=== PATIENT | male | born 1965 | race Caucasian/White ===

== ENCOUNTER 2021-07-29 13:23 | Inpatient (IN) | payer OTHER, SELFPAY ==
[2021-07-29] VITALS (15 sets, daily range): BP systolic 94–175; BP diastolic 62–153; PULSE 102–147; RESP 17–20; TEMP 36.5–37.9; O2SAT 92–97; BMI 37.0; BMI 38.5
--- NOTE | 2021-07-29 | COL_PTH ---
PATIENT: ZUHAIR OWEN LOC: MS2 U#:[id number] AGE/SX: 56/M [place] [facility] [place] [place]07/29/[address]: Dr. Dagoberto Colvin MD : 1965 BED: 1 DIS: 08/07/2021 SPEC #: [id number] RECD: 07/31/21 09:27 STATUS: JAZMIN ALESIA #: [id number] KAREN: 07/29/21 00:[address]: Dagoberto Colvin DEPT: SURGICAL PATHOLOGY RECD BY: Coleen Hernandez ENTERED: 07/31/21 13:08 SP TYPE: COLON OTHR DR: Out of [facility] Doctor Tissues: Colon, NOS Procedures: Surgery Specimen Level V HEADER OPERATION: Laparotomy with right ileocecectomy PRE-OP DIAGNOSIS: Acute appendicitis with rupture TISSUE SUBMITTED: Ileocecectomy MICROSCOPIC DIAGNOSIS Cecum and small bowel, right ileocecectomy: Acute appendicitis with rupture, abscess formation and associated reparative and reactive change. Mucosal margins with no pathologic change. Small bowel with fibrinoid serosal plaque and acute inflammation. Cecum with mild acute serositis. Five out of five lymph nodes with no pathologic change. AM:herberth 08/02/2021 MICROSCOPIC DESCRIPTION Slides are reviewed. GROSS DESCRIPTION Received in fixative is one container labeled with the patient's name and designated ileocecectomy. The specimen consists of a 32 cm segment of small bowel with attached 9 cm segment of cecum and approximately 6 cm segment of appendix with an average diameter of 1.5 cm and surrounding indurated, chapman-yellow fibrofatty tissue. The appendix focally appears to have been ruptured in its distal one-third portion. No mucosal mass lesions are identified. Serial sections of attached fibrofatty tissue reveals a number of nodules resembling lymph nodes. Also present free in the container is an irregular mucosal donut measuring 5 x 1.5 x 1 cm. No mucosal lesions are seen in this mucosal donut. / AM: 07/31/21 The small bowel and cecal mucosa is thrown into normal folds. No mucosal mass lesions are identified. Sort Line Worker sections are submitted as follows: 1 - proximal and distal mucosal margins, 2 - small bowel, 3 - cecum, 4 - ileocecal valve, 5-9 - appendix and periappendiceal tissue, 10 - lymph nodes. / AM:herberth 08/01/21 TC:2 CPT: 20346
--- NOTE | 2021-07-29 14:11 | CT_ITS ---
We are attempting to reach an attending provider to discuss findings. An addendum with communication details will be sent when the communication is complete. STUDY: CT ABDOMEN AND PELVIS WITHOUT CONTRAST REASON FOR EXAM: Male, 56 years old. Right lower quadrant pain. RADIATION DOSAGE (If Supplied By Facility): CTDIvol = ( 21.29 ) mGy, DLP = ( 1367.07 ) mGycm TECHNIQUE: Transaxial images were obtained from the dome of the diaphragm to the symphysis pubis without oral contrast, and without intravenous contrast. Sagittal and coronal images were reconstructed. Individualized dose optimization techniques were used for this CT. COMPARISON: None. FINDINGS: The visualized lung bases demonstrate patchy infiltrates in the right middle lobe and right lower lobe. Atelectatic changes in the right lower lobe. Normal heart size. Mild coronary calcifications. Normal liver. Normal gallbladder and extrahepatic biliary system. Normal spleen. Normal pancreas. Normal bilateral adrenal glands. Normal right kidney. Normal left kidney. Normal visualized stomach. Normal small intestine. Thickening of the cecum. Thickened ill-defined appendix with appendicolith with adjacent extensive inflammatory changes and free fluid in the right lower quadrant consistent with a ruptured acute appendicitis. Normal abdominal aorta. Normal inferior vena cava. Normal retroperitoneum. Normal urinary bladder. Mild free fluid in the pelvis. There is a left-sided inguinal hernia containing adipose tissue. Degenerative changes in the spine. Mild retrolisthesis of L2 over L3. CT/Abdomen/Pelvis without Cont IMPRESSION: 1. Findings consistent with ruptured acute appendicitis as described above. 2. Mild right mid and lower lung infiltrates concerning for pneumonia. Electronically Signed: Brando Velásquez MD at 15:15 EDT Tel , Service support ,
--- NOTE | 2021-07-29 14:12 | EX.ED.DYSGE1 ---
HPI History of Present Illness Chief Complaint: Abd Pain Informant: patient Narrative Narrative: 56-year-old male presenting with right lower quadrant abdominal pain. He states this started on . He has had nausea and vomiting. He has had mild diarrhea. He has had subjective fever. He has had decreased appetite. Prior similar symptoms: Yes Recent Illness/Hospitalization: No PFSH PFSH Medical History (Updated 07/29/21 @ 15:[address] Franci Power MD) Hyperlipidemia Hypertension Home Medications aspirin 81 mg PO DAILY 07/29/21 [History Last Taken Unknown] diclofenac sodium 50 mg PO BID 07/29/21 [History Last Taken Unknown] ezetimibe 10 mg PO QHS 07/29/21 [History Last Taken Unknown] hydrochlorothiazide 12.5 mg PO BID 07/29/21 [History Last Taken Unknown] lisinopril 5 mg PO DAILY 07/29/21 [History Last Taken Unknown] multivitamin 1 tab PO DAILY 07/29/21 [History Last Taken Unknown] potassium chloride 20 meq PO DAILY 07/29/21 [History Last Taken Unknown] potassium chloride 40 meq PO DINNER 07/29/21 [History Last Taken Unknown] Allergy/AdvReac Type Severity Reaction Status Date / Time ibuprofen Allergy NEEDS Verified 07/29/21 13:27 FOLLOW-UP Surgical History (Updated 07/29/21 @ 14:04 by Clementina Tamayo) History of tonsillectomy Social History Smoking Status: Never smoker ROS ROS ED Constitutional Constitutional ED: Reports fever(s) and subjective Eyes Eyes: Denies change in vision ENT ENT ED: Denies rhinorrhea or sore throat Cardiovascular Cardiovascular: Denies chest pain or palpitations Respiratory/Chest Respiratory/Chest: Denies cough or dyspnea Gastrointestinal Gastrointestinal: Reports abdominal pain, diarrhea, nausea and vomiting Genitourinary Genitourinary ED: Denies dysuria Musculoskeletal Musculoskeletal: Denies myalgias Integumentary Denies rash Neurologic Neurologic: Denies headache(s) Psychiatric Psychiatric: Denies suicidal thoughts EXAM Physical Exam Const Vital Signs: 07/29/21 13:24 07/29/21 14:06 Temperature 97.7 F L Temperature Source Temporal Pulse Rate 147 H 141 H Respiratory Rate 19 H 17 Blood Pressure 175/153 H 125/92 H Blood Pressure Mean 160 103 Pulse Ox 95 95 Oxygen Delivery Method Room Air Room Air Positive well nourished and well developed General Appearance ED: well developed HEENT Reports normocephalic and head/scalp atraumatic Eyes PERRL and EOMs intact bilaterally Neck supple General: Negative for tenderness Chest Wall inspection of chest normal Resp normal respiratory effort and clear to auscultation bilaterally Cardio regular rate and regular rhythm GI non-distended Palpation: soft, tender RLQ and guarding; Negative for rebound tenderness present no CVA tenderness Extremity normal to inspection Neuro oriented x3 Sensorium / Orientation: alert Psych mental status grossly normal MDM MDM MDM Narrative Medical decision making narrative: Patient was given IV fluids, morphine, Zofran. CBC shows white count 10.6. Chemistries unremarkable other than sodium 133. Covid is negative. CT abdomen pelvis shows findings consistent with ruptured acute appendicitis. Mild right mid and lower lung infiltrates concerning for pneumonia. Patient was given Zosyn IV. [facility] need [facility]. Discussed with Dr. Colvin who will evaluate the patient in the ED. Lab Data Attestation: I reviewed the patient's lab results. Labs: Laboratory Results - last 24 hr 07/29/21 07/29/21 14:15 14:15 WBC 10.6 RBC 5.69 Hgb 15.8 Hct 46.4 MCV 81.5 MCH 27.8 MCHC 34.1 RDW Std Deviation 37.2 RDW Coeff of Talat 12.5 Plt Count 351 MPV 9.3 Immature Gran % (Auto) 0.300 Neut % (Auto) 89.4 H Lymph % (Auto) 2.9 L [place]yer % (Auto) 7.0 Eos % (Auto) 0.1 Baso % (Auto) 0.3 Absolute Neuts (auto) 9.5 H Absolute Lymphs (auto) 0.31 L Nucleated RBC % 0 Sodium 133 L Potassium 4.7 Chloride 100 Carbon Dioxide 25.0 Anion Gap 8 BUN 16 Creatinine 1.16 Estim Creat Clear Calc 79.90 Est GFR (MDRD) Af Amer 84 Est GFR (MDRD) Non-Af 70 BUN/Creatinine Ratio 13.8 Glucose 167 H Calcium 9.6 Radiography Diagnostic Testing: Clinical Impression(s) from Imaging Studies Abdomen/Pelvis CT 07/29/21 14:11 IMPRESSION: 1. Findings consistent with ruptured acute appendicitis as described above. 2. Mild right mid and lower lung infiltrates concerning for pneumonia. Electronically Signed: Brando Velásquez MD at 15:15 EDT Tel , Service support , ADDENDUM: 07/29/21 1538 IMPRESSION: 1. Findings consistent with ruptured acute appendicitis as described above. 2. Mild right mid and lower lung infiltrates concerning for pneumonia. N.B. : The above Results were Read Back by Brando Velásquez MD to Dr. Tono MD, and understanding confirmed on 07/29/2021 15:31:04 (ET). Electronically Signed: Brando Velásquez MD at 15:15 EDT Tel , Service support , Discharge Plan Dx/Rx/DC Orders Clinical Impression: Acute appendicitis with rupture Disposition Disposition: Acute Care [facility]
[2021-07-29] MEDS: 0.9% Normal Saline 1,000 ML 1000 ML IV (14:20)
[2021-07-29 14:26] LABS: Absolute Lymphocyte Count 0.31 X10^3/uL (0.83-4.51); Absolute Neutrophil Count 9.5 X10^3/uL (2.0-7.7); Basophil# 0.03 X10^3/uL; Basophil% 0.3 % (0-1); Eosinophil# 0.01 X10^3/uL; Eosinophils% 0.1 % (0-5); Hematocrit 46.4 % (40-54); Hemoglobin 15.8 g/dL (13.0-16.5); Lymphocyte # 0.31 X10^3/ul (0.83-4.51); Lymphocyte % 2.9 % (19-41); Mean Corp Hgb Conc 34.1 g/dL (32-36); Mean Corpuscular Hgb 27.8 pg (27.0-32.0); Mean Corpuscular Volume 81.5 fL (80-94); Mean Platelet Vol. 9.3 fl (6.2-12.0); Monocyte# 0.74 X10^3/uL; NRBC Flagged by Analyzer 0 % (0-5); Neutrophil # 9.52 X10^3/uL (2.7-7.7); Neutrophil % 89.4 % (47-70); POSITIVE DIFFERENTIAL YES; Platelet Count 351 K/mm3 (150-450); RBC Distribution Width CV 12.5 % (11.6-14.6); RBC Distribution Width SD 37.2 fl (35.1-43.9); Red Blood Count 5.69 M/mm3 (4.6-6.2); White Blood Count 10.6 K/mm3 (4.4-11.0)
[2021-07-29 14:27] LABS: Differential Indicated SCAN CRITERIA MET
[2021-07-29] MEDS: Morphine 4 MG/ML Syringe IV (14:29)
[2021-07-29] MEDS: Ondansetron 4 MG/2 ML Vial IV (14:29)
[2021-07-29 15:02] LABS: Anion Gap 8 (5-15); BUN 16 mg/dL (7-18); BUN/Creat Ratio 13.8 RATIO (10-20); Calcium,Total 9.6 mg/dL (8.5-10.1); Chloride 100 mmol/L (98-107); Creatinine, Serum 1.16 mg/dL (0.70-1.30); EST Glomerular Filtration Rate 70 mL/min (>60); Est Glom Filt Rate - Afr Amer 84 mL/min (>60); Glucose 167 mg/dL (74-106); Potassium 4.7 mmol/L (3.5-5.1); Sodium Level 133 mmol/L (136-145)
--- NOTE | 2021-07-29 15:26 | NURSING ---
LEFT MESSAGE WITH ESTEFANÍA HANSON THAT PT HAS A RUPTURED APPENDIX AND NEEDS CONTINUED CARE.
[2021-07-29] MEDS: 0.9% Normal Saline 1,000 ML 999 ML IV (15:59)
--- NOTE | 2021-07-29 16:28 | EKG12_ITS ---
Test Reason : PRE-OP Blood Pressure : / mmHG Vent. Rate : 131 BPM Atrial Rate : 131 BPM P-R Int : 164 ms QRS Dur : 092 ms QT Int : 272 ms P-R-T Axes : 039 055 026 degrees QTc Int : 401 ms Sinus tachycardia Otherwise normal ECG Confirmed by RIC BAH, JERRI ([id number]), research editor YEISON ZHU ([id number]) on 08/01/2021 8:47:31 AM Referred By: ALEXANDER Confirmed By:JERRI LARIOS MD
[2021-07-29] MEDS: Lactated Ringers 1,000 ML 100 ML IV ×2 (16:30→18:00)
--- NOTE | 2021-07-29 16:32 | HP.PCM.SX_ITS ---
HPI - General HPI Narrative ZUHAIR OWEN, is a 56 M who presents with abdominal that started 4 days ago. Patient then developed more severe abdominal pain and started having nausea and vomiting. Patient also reported low-grade fever at home. [facility] Medical History (Updated 07/29/21 @ 15:[address] Franci Power MD) Hyperlipidemia Hypertension Home Medications aspirin 81 mg PO DAILY 07/29/21 [History Last Taken Unknown] diclofenac sodium 50 mg PO BID 07/29/21 [History Last Taken Unknown] ezetimibe 10 mg PO QHS 07/29/21 [History Last Taken Unknown] hydrochlorothiazide 12.5 mg PO BID 07/29/21 [History Last Taken Unknown] lisinopril 5 mg PO DAILY 07/29/21 [History Last Taken Unknown] multivitamin 1 tab PO DAILY 07/29/21 [History Last Taken Unknown] potassium chloride 20 meq PO DAILY 07/29/21 [History Last Taken Unknown] potassium chloride 40 meq PO DINNER 07/29/21 [History Last Taken Unknown] Allergy/AdvReac Type Severity Reaction Status Date / Time ibuprofen Allergy NEEDS Verified 07/29/21 13:27 FOLLOW-UP Surgical History (Updated 07/29/21 @ 14:04 by Clementina Tamayo) History of tonsillectomy Social History Smoking Status: Never smoker ROS Constitutional Constitutional: Reports fever(s) Eyes Eyes: Denies blurry vision ENT HEENT: Denies abnormal hearing Cardiovascular Cardiovascular: Denies chest pain Respiratory/Chest Respiratory/Chest: Denies cough or dyspnea Gastrointestinal Gastrointestinal: Reports abdominal pain, nausea and vomiting; Denies constipation or diarrhea Genitourinary Genitourinary: Denies change in urinary stream Musculoskeletal Musculoskeletal: Denies abnormal gait Integumentary Integumentary: Denies jaundice Neurologic Neurologic: Denies abnormal gait Vital Signs Vital Signs Vital Signs: 07/29/21 13:24 07/29/21 14:06 Temperature 97.7 F L Temperature Source Temporal Pulse Rate 147 H 141 H Respiratory Rate 19 H 17 Blood Pressure 175/153 H 125/92 H Blood Pressure Mean 160 103 Pulse Ox 95 95 Oxygen Delivery Method Room Air Room Air Weight Weight: 273 lb Body Mass Index (BMI) 37.0 Physical Exam Const oriented x3 and no apparent distress Resp normal respiratory effort Cardio Rate: tachycardic GI soft to palpation Palpation: tender RLQ Results Lab / Micro Data Result Diagrams: 07/29/21 14:15 10/16/21 14:15 Labs: Laboratory Results - last 24 hr 07/29/21 14:15: WBC 10.6, RBC 5.69, Hgb 15.8, Hct 46.4, MCV 81.5, MCH 27.8, MCHC 34.1, RDW Std Deviation 37.2, RDW Coeff of Talat 12.5, Plt Count 351, MPV 9.3, Immature Gran % (Auto) 0.300, Neut % (Auto) 89.4 H, Lymph % (Auto) 2.9 L, [place] % (Auto) 7.0, Eos % (Auto) 0.1, Baso % (Auto) 0.3, Absolute Neuts (auto) 9.5 H, Absolute Lymphs (auto) 0.31 L, Nucleated RBC % 0 07/29/21 14:15: Sodium 133 L, Potassium 4.7, Chloride 100, Carbon Dioxide 25.0, Anion Gap 8, BUN 16, Creatinine 1.16, Estim Creat Clear Calc 79.90, Est GFR (MDRD) Af Amer 84, Est GFR (MDRD) Non-Af 70, BUN/Creatinine Ratio 13.8, Glucose 167 H, Calcium 9.6 Micro: Microbiology 07/29/21 15:15 Nasal Secretion SARS-CoV-2 Antigen (Rapid) - Final Radiology Impression Abdomen/Pelvis CT 07/29/21 14:11 IMPRESSION: 1. Findings consistent with ruptured acute appendicitis as described above. 2. Mild right mid and lower lung infiltrates concerning for pneumonia. Electronically Signed: Brando Velásquez MD at 15:15 EDT Tel , Service support , ADDENDUM: 07/29/21 1538 IMPRESSION: 1. Findings consistent with ruptured acute appendicitis as described above. 2. Mild right mid and lower lung infiltrates concerning for pneumonia. N.B. : The above Results were Read Back by Brando Velásquez MD to Dr. Tono MD, and understanding confirmed on 07/29/2021 15:31:04 (ET). Electronically Signed: Brando Velásquez MD at 15:15 EDT Tel , Service support , Assessment & Plan Assessment/Plan (1) Acute appendicitis with rupture: PLAN: The patient has been having pain for the last 4 days. He is also having nausea and vomiting as well as fever. Patient is having a severe amount of right lower quadrant pain with guarding. CT scan shows perforated appendicitis with an appendicolith and fluid around the right colon. There are pockets of free air. Given the amount of inflammation I do not believe this will be able to be taken care of laparoscopically. I believe the patient would require open washout of the abdomen with ileocecectomy. I discussed open laparotomy and ileocecectomy with the patient. I discussed the risks including but not limited to bleeding, infection, injury to surrounding organs such as the small bowel or colon or ureter or bladder. Patient understands the risks and the need for resection. Patient was given antibiotics in the ER. Twelve-lead EKG and Covid test will be obtained. Dagoberto Colvin MD Pager: [facility] [address] [place] [address], [address] [place] [address] Office:
[2021-07-29 17:22] LABS: White Blood Cells 0 SEEN /hpf (0-5)
[2021-07-29 17:25] LABS: Color, Urine Yellow (Yellow); Glucose, Dipstick Normal (Normal); Ketone-Dipstick 15 mg/dl (Negative); Leukocyte Esterase-Dipstick Negative /ul (Negative); Nitrite-Dipstick Negative (Negative); Occult Blood-Urine 150 /ul (Negative); Protein-Dipstick 30 mg/dl (Negative); Urine Bilirubin Dipstick Negative (Negative); Urine Clarity Clear (Clear); Urine Urobilinogen 1 mg/dl (Normal)
[2021-07-29 17:30] LABS: Bacteria 1+ /hpf (None Seen); Mucous, Urine 1+ /hpf (<or=2+); Red Blood Cells-Urine 0-5 SEEN /hpf (0-5); Squamous Epithelial Cells - UA 0-5 SEEN /hpf (0-5)
--- NOTE | 2021-07-29 19:44 | PCM.OPRPT ---
Problems Associated Problem List Diagnoses (1) Acute appendicitis with rupture: Report of Operation Date of Procedure: 07/29/21 Pre-Operative Diagnosis: Perforated appendicitis Post-Operative Diagnosis: Perforated appendicitis with peritonitis Surgery/Procedure Performed:: Exploratory laparotomy with ileocecectomy Specimen's removed: Terminal ileum and cecum Drains: BARRY to bulb suction Description of Procedure: Patient was brought back to the operating room and general anesthesia was used. Odonnell catheter was placed into the bladder. The abdomen was prepped and draped in the usual sterile fashion. A midline incision was made from just above the umbilicus down to the suprapubic area and deepened to the fascia using electrocautery. The fascia was elevated and sharply incised. Fingers were placed into the abdomen and the fascial and peritoneal incision were elongated superiorly and inferiorly. A wound protector was placed. Copious purulent material was suctioned from the abdomen. The patient had peritonitis as well. The cecum appeared to be very inflamed and adherent to the lateral wall. It was finger fractured away from the lateral wall and some sharp dissection was performed as well. The proximal ascending colon was then freed from its lateral attachments. The terminal ileum appeared very inflamed and thickened as well. This was traced back until normal small bowel was encountered. Next just distal to the inflamed colon a RIVKA stapler was used to divide the ascending colon. In the same fashion the ileum was divided as well and using an impact LigaSure the mesentery to the terminal ileum and cecum was taken. There is good hemostasis. Specimen was sent for pathology. Next the abdomen was copiously irrigated with several liters of fluid and suctioned dry. A small ashlyn was made in each staple line of the small bowel and colon and then a RIVKA stapler was used to make a [id number] functional end-to-end anastomosis between the small bowel and the colon. The stapler was removed and a TX 60 was used to close the enterotomy. A crotch suture of 3-0 silk was placed. The mesentery was too inflamed to reapproximate. The anastomosis was placed into the abdomen and the abdomen was once again irrigated and suctioned dry. A 15 [place] round drain was placed through the left lower quadrant and into the abdomen and placed into the pelvis. It was sutured to the skin using 3-0 nylon suture and placed to bulb suction. The fascia was then closed using a running #1 PDS suture from the top and bottom meeting in the middle. Subcutaneous tissue was irrigated and suctioned dry and sparse jenn were placed in the skin incision to allow for drainage. Dressing was applied. Patient was awoken and taken to PACU in stable condition and Odonnell catheter was left in place. Admit VTE Documentation VTE Mechan Device Prophylaxis: SCD's
[2021-07-29] MEDS: 0.9% Normal Saline 1,000 ML 125 ML IV (21:52)
--- NOTE | 2021-07-29 22:31 | PCS.PANDOC ---
PANDEMIC DOCUMENTATION INITIATED: Date: 05/29/2021 Time: 190
[2021-07-29] MEDS: Acetaminophen 325 MG Tablet 650 MG PO (22:32)
[2021-07-30] VITALS (16 sets, daily range): BP systolic 102–144; BP diastolic 60–92; PULSE 101–123; RESP 18–20; TEMP 36.1–37.9; O2SAT 88–94
[2021-07-30] MEDS: 0.9% Normal Saline 1,000 ML 999 ML IV (00:31)
[2021-07-30] MEDS: 0.9% Normal Saline 1,000 ML 125 ML IV ×4 (01:34→23:49)
[2021-07-30] MEDS: HYDROmorphone 1 MG/ML Syringe IV ×10 (01:42→23:49)
[2021-07-30] MEDS: Acetaminophen 325 MG Tablet 650 MG PO ×2 (02:33→23:49)
[2021-07-30] MEDS: 0.9% Saline Lock 10 ML Syringe IV ×3 (04:14→19:03)
[2021-07-30 05:32] LABS: Absolute Lymphocyte Count 1.16 X10^3/uL (0.83-4.51); Absolute Neutrophil Count 12.5 X10^3/uL (2.0-7.7); Basophil# 0.03 X10^3/uL; Basophil% 0.2 % (0-1); Hematocrit 41.9 % (40-54); Hemoglobin 13.9 g/dL (13.0-16.5); Lymphocyte # 1.16 X10^3/ul (0.83-4.51); Lymphocyte % 7.7 % (19-41); Mean Corp Hgb Conc 33.2 g/dL (32-36); Mean Corpuscular Hgb 27.6 pg (27.0-32.0); Mean Corpuscular Volume 83.3 fL (80-94); Mean Platelet Vol. 9.3 fl (6.2-12.0); Monocyte# 1.18 X10^3/uL; Monocyte% 7.9 % (0-10); NRBC Flagged by Analyzer 0 % (0-5); Neutrophil # 12.52 X10^3/uL (2.7-7.7); Neutrophil % 83.7 % (47-70); Platelet Count 352 K/mm3 (150-450); RBC Distribution Width SD 39.3 fl (35.1-43.9); Red Blood Count 5.03 M/mm3 (4.6-6.2)
[2021-07-30 06:02] LABS: Anion Gap 7 (5-15); BUN 13 mg/dL (7-18); BUN/Creat Ratio 11.5 RATIO (10-20); Calcium,Total 7.5 mg/dL (8.5-10.1); Chloride 105 mmol/L (98-107); Creatinine, Serum 1.13 mg/dL (0.70-1.30); EST Glomerular Filtration Rate 72 mL/min (>60); Est Glom Filt Rate - Afr Amer 87 mL/min (>60); Estimated Creatinine Clearance 82.03 ml/min; Glucose 136 mg/dL (74-106); Potassium 3.6 mmol/L (3.5-5.1); Sodium Level 138 mmol/L (136-145)
--- NOTE | 2021-07-30 06:19 | NURSING ---
assisted with help of another RN to assist pt getting up as its postop day #1. pt sat at edge of bed and stated i feel like i am going to pass out pt assisted back to bed to a lying position and pt states that dizziness is residing. pt requesting pain meds, and Dilaudid given at this time. denies further needs. vitals obtained.
--- NOTE | 2021-07-30 07:32 | PCM.PN.SRG ---
Subjective Subjective Patient reports no nausea vomiting overnight although he did have a low-grade fever. Objective Data Objective Data Vital Signs: Vital Signs Temp Pulse Resp BP Pulse Ox 98.8 F 105 H 18 107/78 93 07/30/21 06:08 07/30/21 06:08 07/30/21 06:08 07/30/21 06:08 07/30/21 06:08 Oxygen Flow Rate (L/min) 4 Oxygen Delivery Method Nasal Cannula Weight: 284 lb 2.813 oz Body Mass Index (BMI) 38.5 Intake & Output: Intake and Output for Last 24 Hours 07/28/21 07/29/21 07/30/21 23:59 23:59 23:59 Intake Total 3553.33 / 3553.33 1425.42 / 1425.42 Output Total 775 / 775 520 / 520 Balance 2778.33 / 2778.33 905.42 / 905.42 Lab / Micro Data Result Diagrams: 07/30/21 05:00 07/30/21 05:00 Labs: Laboratory Results - last 24 hr 07/29/21 14:15: WBC 10.6, RBC 5.69, Hgb 15.8, Hct 46.4, MCV 81.5, MCH 27.8, MCHC 34.1, RDW Std Deviation 37.2, RDW Coeff of Talat 12.5, Plt Count 351, MPV 9.3, Immature Gran % (Auto) 0.300, Neut % (Auto) 89.4 H, Lymph % (Auto) 2.9 L, [place] % (Auto) 7.0, Eos % (Auto) 0.1, Baso % (Auto) 0.3, Absolute Neuts (auto) 9.5 H, Absolute Lymphs (auto) 0.31 L, Nucleated RBC % 0 07/29/21 14:15: Sodium 133 L, Potassium 4.7, Chloride 100, Carbon Dioxide 25.0, Anion Gap 8, BUN 16, Creatinine 1.16, Estim Creat Clear Calc 79.90, Est GFR (MDRD) Af Amer 84, Est GFR (MDRD) Non-Af 70, BUN/Creatinine Ratio 13.8, Glucose 167 H, Calcium 9.6 07/29/21 17:15: Urine Color Yellow, Urine Clarity Clear, Urine pH 5.0, Ur Specific [place] 1.020, Urine Protein 30 H, Urine Glucose (UA) Normal, Urine Ketones 15 H, Urine Occult Blood 150 H, Urine Nitrite Negative, Urine Bilirubin Negative, Urine Urobilinogen 1 H, Ur Leukocyte Esterase Negative, Urine RBC 0-5 SEEN, Urine WBC 0 SEEN, Ur Squamous Epith Cells 0-5 SEEN, Urine Bacteria 1+, Urine Mucus 1+ 07/30/21 05:00: WBC 15.0 H, RBC 5.03, Hgb 13.9, Hct 41.9, MCV 83.3, MCH 27.6, MCHC 33.2, RDW Std Deviation 39.3, RDW Coeff of Talat 13.0, Plt Count 352, MPV 9.3, Immature Gran % (Auto) 0.500, Neut % (Auto) 83.7 H, Lymph % (Auto) 7.7 L, [place] % (Auto) 7.9, Eos % (Auto) 0.0, Baso % (Auto) 0.2, Absolute Neuts (auto) 12.5 H, Absolute Lymphs (auto) 1.16, Nucleated RBC % 0 07/30/21 05:00: Sodium 138, Potassium 3.6, Chloride 105, Carbon Dioxide 26.0, Anion Gap 7, BUN 13, Creatinine 1.13, Estim Creat Clear Calc 82.03, Est GFR (MDRD) Af Amer 87, Est GFR (MDRD) Non-Af 72, BUN/Creatinine Ratio 11.5, Glucose 136 H, Calcium 7.5 L Micro: Microbiology 07/29/21 15:15 Nasal Secretion SARS-CoV-2 Antigen (Rapid) - Final Radiography Diagnostic Testing: Radiology Impression Abdomen/Pelvis CT 07/29/21 14:11 IMPRESSION: 1. Findings consistent with ruptured acute appendicitis as described above. 2. Mild right mid and lower lung infiltrates concerning for pneumonia. Electronically Signed: Brando Velásquez MD at 15:15 EDT Tel , Service support , ADDENDUM: 07/29/21 1093 IMPRESSION: 1. Findings consistent with ruptured acute appendicitis as described above. 2. Mild right mid and lower lung infiltrates concerning for pneumonia. N.B. : The above Results were Read Back by Brando Velásquez MD to Dr. Tono MD, and understanding confirmed on 07/29/2021 15:31:04 (ET). Electronically Signed: Brando Velásquez MD at 15:15 EDT Tel , Service support , Physical Exam Const oriented x3 and no apparent distress Resp normal respiratory effort Cardio Rate: tachycardic GI soft to palpation Palpation: tender Assessment & Plan Assessment/Plan (1) Acute appendicitis with rupture: PLAN: The patient underwent ileocecectomy yesterday for perforated appendicitis. Patient has a drain in place and will continue antibiotics. Urine output is adequate and Odonnell will be removed. BARRY drain is seropurulent. Continue n.p.o. with IV fluids and I will start Lovenox. PPI, incentive spirometer. Dagoberto Colvin MD Pager: [facility] [address] [place] [address], [address] [place] [address] Office:
[2021-07-30] MEDS: Aspirin 81 MG TAB.CHEW PO (09:05)
[2021-07-30] MEDS: Enoxaparin 40 MG/0.4 ML Syringe SC (09:05)
[2021-07-30] MEDS: Pantoprazole Sodium 40 MG Tablet PO (09:05)
[2021-07-30] MEDS: hydroCHLOROthiazide 12.5mg 12.5 MG PO (21:39)
[2021-07-31] VITALS (11 sets, daily range): BP systolic 112–148; BP diastolic 65–97; PULSE 95–119; RESP 18–20; TEMP 36.8–37.8; O2SAT 91–94
[2021-07-31] MEDS: HYDROmorphone 1 MG/ML Syringe IV ×7 (02:15→23:44)
[2021-07-31 06:27] LABS: Absolute Lymphocyte Count 0.95 X10^3/uL (0.83-4.51); Absolute Neutrophil Count 15.8 X10^3/uL (2.0-7.7); Basophil# 0.03 X10^3/uL; Basophil% 0.2 % (0-1); Eosinophil# 0.04 X10^3/uL; Eosinophils% 0.2 % (0-5); Hematocrit 41.4 % (40-54); Hemoglobin 13.4 g/dL (13.0-16.5); Lymphocyte # 0.95 X10^3/ul (0.83-4.51); Lymphocyte % 5.2 % (19-41); Mean Corp Hgb Conc 32.4 g/dL (32-36); Mean Corpuscular Hgb 27.5 pg (27.0-32.0); Mean Platelet Vol. 9.2 fl (6.2-12.0); Monocyte# 1.21 X10^3/uL; Monocyte% 6.6 % (0-10); NRBC Flagged by Analyzer 0 % (0-5); Neutrophil # 15.82 X10^3/uL (2.7-7.7); Platelet Count 337 K/mm3 (150-450); RBC Distribution Width CV 13.3 % (11.6-14.6); RBC Distribution Width SD 41.9 fl (35.1-43.9); Red Blood Count 4.87 M/mm3 (4.6-6.2); White Blood Count 18.2 K/mm3 (4.4-11.0)
[2021-07-31 06:55] LABS: Anion Gap 8 (5-15); BUN 12 mg/dL (7-18); BUN/Creat Ratio 11.1 RATIO (10-20); Calcium,Total 8.2 mg/dL (8.5-10.1); Chloride 100 mmol/L (98-107); Creatinine, Serum 1.08 mg/dL (0.70-1.30); EST Glomerular Filtration Rate 76 mL/min (>60); Est Glom Filt Rate - Afr Amer 92 mL/min (>60); Estimated Creatinine Clearance 85.82 ml/min; Glucose 136 mg/dL (74-106); Potassium 3.9 mmol/L (3.5-5.1); Sodium Level 136 mmol/L (136-145)
[2021-07-31] MEDS: 0.9% Normal Saline 1,000 ML 125 ML IV ×3 (07:55→23:49)
[2021-07-31] MEDS: Aspirin 81 MG TAB.CHEW PO (08:02)
[2021-07-31] MEDS: Pantoprazole Sodium 40 MG Tablet PO (08:03)
[2021-07-31] MEDS: Enoxaparin 40 MG/0.4 ML Syringe SC (08:03)
[2021-07-31] MEDS: Lisinopril 5 MG Tablet PO (08:03)
[2021-07-31] MEDS: hydroCHLOROthiazide 12.5mg 12.5 MG PO ×2 (08:03→21:01)
--- NOTE | 2021-07-31 08:29 | CT_ITS ---
STUDY: CT ABDOMEN AND PELVIS WITH CONTRAST REASON FOR EXAM: Male, 56 years old. fever, leukocytosis, s/p ileocecectomy for perf ap RADIATION DOSAGE (If Supplied By Facility): CTDIvol = ( 22.77 ) mGy, DLP = ( 1997.72 ) mGycm TECHNIQUE: Transaxial images were obtained from the dome of the diaphragm to the symphysis pubis with oral contrast. Oral and amp; IV Gastrografin and amp; 100mL Isovue-370 was administered. Sagittal and coronal images were reconstructed. Individualized dose optimization techniques were used for this CT. COMPARISON: 07/29/2021 FINDINGS: Bibasilar atelectasis. The visualized portions of the heart are within normal limits. Small amount of pneumoperitoneum and free fluid consistent with recent abdominal surgery. Surgical drain in the right lower quadrant without loculated fluid collection to suggest postoperative seroma, hematoma, or abscess. Normal liver. Normal gallbladder and extrahepatic biliary system. Normal spleen. Normal pancreas. Normal bilateral adrenal glands. Normal right kidney. Normal left kidney. Mild gastric distention. Multiple loops of moderately dilated jejunum with a transition point in the right upper quadrant on image 87 consistent with a mild small bowel obstruction. No pneumatosis to suggest ischemia. No evidence of perforation. Normal colon. There are surgical clips in the region of the appendix consistent with a prior appendectomy. Normal abdominal aorta. Normal inferior vena cava. Normal retroperitoneum. Air-fluid level in the urinary bladder likely from recent instrumentation. Normal abdominal wall. Normal osseous structures. CT/Abdomen/Pelvis WITH Contrast IMPRESSION: 1. Recent appendectomy with a small amount of pneumoperitoneum and free fluid with a right lower quadrant surgical drain without postoperative fluid collection. 2. Some bibasilar atelectasis. 3. Mild small bowel obstruction with a transition point in the right upper quadrant. Electronically Signed: Tristen Mensah MD at 12:30 EDT Tel , Service support ,
--- NOTE | 2021-07-31 08:29 | CT_ITS ---
STUDY: CTA CHEST REASON FOR EXAM: Male, 56 years old. tachycardia, increased o2 demand RADIATION DOSAGE (If Supplied By Facility): CTDIvol = ( 22.77 ) mGy, DLP = ( 1997.72 ) mGycm TECHNIQUE: The examination was performed with the intravenous administration of Oral and amp; IV Gastrografin and amp; 100mL Isovue-370. Post-processing of the angiographic images was performed, with multiplanar reformation and 3D reconstruction. Individualized dose optimization techniques were used for this CT. COMPARISON: None. FINDINGS: Enlargement left lobe of thyroid gland correlation with thyroid ultrasound is recommended to exclude nodule. Normal enhancement of the main pulmonary artery and right and left pulmonary arteries. Normal enhancement of the bilateral peripheral pulmonary arteries. There is no demonstrated pulmonary embolism. Normal thoracic aorta and visualized great vessels. There is no demonstrated aortic dissection. Normal heart and pericardium. Normal mediastinum. Normal hilar regions. Normal visualized trachea and bronchi. The lungs are well expanded. Some bibasilar atelectasis. Normal pleura. Normal chest wall structures. Normal osseous structures. Small amount of pneumoperitoneum consistent with recent surgery. CT/CTA Chest W/WO Contrast IMPRESSION: 1. No CT evidence of pulmonary embolism. 2. Some bibasilar atelectasis. 3. Small amount of pneumoperitoneum consistent with recent abdominal surgery. 4. Enlargement of the left lobe of thyroid gland and correlation with thyroid ultrasound is recommended to exclude thyroid nodule. Electronically Signed: Tristen Mensah MD at 12:38 EDT Tel , Service support ,
--- NOTE | 2021-07-31 08:45 | PCM.PN.SRG ---
Subjective Subjective Patient had no nausea or vomiting but does require a lot of pain medication. No flatus. Objective Data Objective Data Vital Signs: Vital Signs Temp Pulse Resp BP Pulse Ox 98.6 F 115 H 18 137/71 H 92 07/31/21 08:00 07/31/21 08:00 07/31/21 08:00 07/31/21 08:00 07/31/21 08:00 Oxygen Flow Rate (L/min) 5 Oxygen Delivery Method Nasal Cannula Weight: 284 lb 2.813 oz Body Mass Index (BMI) 38.5 Intake & Output: Intake and Output for Last 24 Hours 07/29/21 07/30/21 07/31/21 23:59 23:59 23:59 Intake Total 3553.33 / 3553.33 5000.41 / 5000.41 1065 / 1065 Output Total 775 / 775 1325 / 1325 250 / 250 Balance 2778.33 / 2778.33 3675.41 / 3675.41 815 / 815 Lab / Micro Data Result Diagrams: 07/31/21 06:02 07/31/21 06:02 Labs: Laboratory Results - last 24 hr 07/31/21 06:02: WBC 18.2 H, RBC 4.87, Hgb 13.4, Hct 41.4, MCV 85.0, MCH 27.5, MCHC 32.4, RDW Std Deviation 41.9, RDW Coeff of Talat 13.3, Plt Count 337, MPV 9.2, Immature Gran % (Auto) 0.800, Neut % (Auto) 87.0 H, Lymph % (Auto) 5.2 L, [place] % (Auto) 6.6, Eos % (Auto) 0.2, Baso % (Auto) 0.2, Absolute Neuts (auto) 15.8 H, Absolute Lymphs (auto) 0.95, Nucleated RBC % 0 07/31/21 06:02: Sodium 136, Potassium 3.9, Chloride 100, Carbon Dioxide 28.0, Anion Gap 8, BUN 12, Creatinine 1.08, Estim Creat Clear Calc 85.82, Est GFR (MDRD) Af Amer 92, Est GFR (MDRD) Non-Af 76, BUN/Creatinine Ratio 11.1, Glucose 136 H, Calcium 8.2 L Micro: Microbiology 10/16/21 15:15 Nasal Secretion SARS-CoV-2 Antigen (Rapid) - Final Physical Exam Const no apparent distress Cardio Rate: tachycardic GI soft to palpation Palpation: tender other (Diffuse) Assessment & Plan Assessment/Plan (1) Acute appendicitis with rupture: PLAN: The patient is having increasing oxygen requirements as well as tachycardia. Patient's white count has gone up and he is not passing any flatus yet. He is diffusely tender in his abdomen. Given the fact that his white count has gone up and he is increasing his oxygen requirements I am concerned for PE versus developing pneumonia and I will order a CTA of the chest. I will also order a CT with oral contrast of the abdomen to see if there is any leakage from the anastomosis or abscess. Dagoberto Colvin MD Pager: [facility] [address] [place] [address], [address] [place] [address] Office:
--- NOTE | 2021-07-31 11:35 | CASEMGMT ---
RN PERLA Face to Face with patient for initial transition planning/care coordination assessment. RN CM introduced self and role at [facility]. Patient lying in bed, alert and oriented. Patient willing to participate in assessment and is able to answer all questions appropriately. Care providers, pharmacy, and demographics verified. Patient wishes to discharge home, denies need for home health at this time. Patient states he has no further needs or concerns at this time. CM to follow for discharge planning needs that may arise. PCP:Esther Diaz [place] Specialists: none Preferred Pharmacy: [place], [facility] retail at discharge. [place] Living Will/HPOA: none LNOK: ex Living Arrangements: Patient lives in a single story home with 4 steps to enter. Patient states he was independent at home. Transportation: self/family DME/HHC: Patient denies DME or previous HHC Disposition Plan: Patient to discharge home with family support and follow-up plans in place. Jessi VALERA, RN, CM
[2021-07-31] MEDS: Ketorolac 15 MG/ML Vial IV ×2 (13:22→21:01)
--- NOTE | 2021-07-31 13:52 | CASEMGMT ---
GEORGIANA DUNCAN received call from Henri STONER at [facility]. Updated on clinical information. Henri STONER direct number is [phone].
[2021-07-31] MEDS: 0.9% Saline Lock 10 ML Syringe IV ×2 (16:07→23:44)
[2021-08-01] VITALS (8 sets, daily range): BP systolic 123–145; BP diastolic 71–94; PULSE 78–99; RESP 18–20; TEMP 36.4–37.1; O2SAT 93–97
[2021-08-01] MEDS: Calcium Carbonate 500 MG Tablet PO (01:59)
[2021-08-01] MEDS: HYDROmorphone 1 MG/ML Syringe IV (03:00)
[2021-08-01] MEDS: 0.9% Saline Lock 10 ML Syringe IV ×2 (03:00→22:31)
[2021-08-01] MEDS: Ondansetron 4 MG/2 ML Vial IV (05:59)
--- NOTE | 2021-08-01 06:28 | NURSING ---
pt had large emesis, 500 ml of green bile vomit. zofran given, effective
[2021-08-01 06:43] LABS: Absolute Lymphocyte Count 0.66 X10^3/uL (0.83-4.51); Absolute Neutrophil Count 17.2 X10^3/uL (2.0-7.7); Basophil# 0.03 X10^3/uL; Basophil% 0.2 % (0-1); Eosinophil# 0.03 X10^3/uL; Eosinophils% 0.2 % (0-5); Hematocrit 39.1 % (40-54); Lymphocyte # 0.66 X10^3/ul (0.83-4.51); Lymphocyte % 3.5 % (19-41); Mean Corp Hgb Conc 33.2 g/dL (32-36); Mean Corpuscular Hgb 27.4 pg (27.0-32.0); Mean Corpuscular Volume 82.3 fL (80-94); Monocyte# 0.96 X10^3/uL; NRBC Flagged by Analyzer 0 % (0-5); Neutrophil # 17.18 X10^3/uL (2.7-7.7); Neutrophil % 89.9 % (47-70); Platelet Count 406 K/mm3 (150-450); RBC Distribution Width SD 39.4 fl (35.1-43.9); Red Blood Count 4.75 M/mm3 (4.6-6.2); White Blood Count 19.1 K/mm3 (4.4-11.0)
[2021-08-01 07:11] LABS: Anion Gap 8 (5-15); BUN 17 mg/dL (7-18); BUN/Creat Ratio 21.8 RATIO (10-20); Calcium,Total 8.3 mg/dL (8.5-10.1); Chloride 101 mmol/L (98-107); Creatinine, Serum 0.78 mg/dL (0.70-1.30); EST Glomerular Filtration Rate 110 mL/min (>60); Est Glom Filt Rate - Afr Amer 133 mL/min (>60); Estimated Creatinine Clearance 118.83 ml/min; Glucose 155 mg/dL (74-106); Potassium 3.3 mmol/L (3.5-5.1); Sodium Level 136 mmol/L (136-145)
[2021-08-01] MEDS: 0.9% Normal Saline 1,000 ML 125 ML IV ×3 (07:52→22:29)
[2021-08-01] MEDS: Enoxaparin 40 MG/0.4 ML Syringe SC (07:55)
--- NOTE | 2021-08-01 08:00 | RAD_ITS ---
STUDY: X-RAY - ABDOMEN/PELVIS REASON FOR EXAM: Male, 56 years old. Concern for SBO -- confirm NG placement TECHNIQUE: Single AP view of the abdomen / pelvis. COMPARISON: None. FINDINGS: Nasogastric tube has been placed. The tip is in the body of the stomach with the proximal portion coiled in the fundal portion of the stomach. There are dilated loops of the small intestine with a non-distended colon consistent with a small bowel obstruction. Small amount of gas and fecal material is seen in the colon. Postoperative catheter is seen in the lower abdomen and pelvis. The visualized liver, spleen and kidneys are grossly normal in size and morphology. Normal soft tissue structures. Normal visualized osseous structures. RAD/Abdomen Single View (Portable) IMPRESSION: The tip of the nasogastric tube is in the body of the stomach. The more proximal portion of the nasogastric tube is coiled in the stomach. Small bowel dilatation with a small amount of gas and fecal material in the colon. Electronically Signed: Corbin Medeiros MD at 8:28 EDT , Service support ,
--- NOTE | 2021-08-01 08:10 | PCM.PN.SRG ---
Subjective Subjective The patient had some vomiting this morning and still has no flatus. Planing of a lot of abdominal pain. Objective Data Objective Data Vital Signs: Vital Signs Temp Pulse Resp BP Pulse Ox 98.7 F 94 18 123/71 H 94 08/01/21 03:00 08/01/21 03:00 08/01/21 03:00 08/01/21 03:00 08/01/21 03:00 Oxygen Flow Rate (L/min) 3 Oxygen Delivery Method Nasal Cannula Weight: 284 lb 2.813 oz Body Mass Index (BMI) 38.5 Intake & Output: Intake and Output for Last 24 Hours 07/30/21 07/31/21 08/01/21 23:59 23:59 23:59 Intake Total 5000.41 / 5000.41 3935.83 / 3935.83 1050 / 1050 Output Total 1325 / 1325 1495 / 1495 2580 / 2580 Balance 3675.41 / 3675.41 2440.83 / 2440.83 -1530 / -1530 Lab / Micro Data Result Diagrams: 08/01/21 06:32 08/01/21 06:32 Labs: Laboratory Results - last 24 hr 08/01/21 06:32: WBC 19.1 H, RBC 4.75, Hgb 13.0, Hct 39.1 L, MCV 82.3, MCH 27.4, MCHC 33.2, RDW Std Deviation 39.4, RDW Coeff of Talat 13.0, Plt Count 406, MPV 9.0, Immature Gran % (Auto) 1.200 H, Neut % (Auto) 89.9 H, Lymph % (Auto) 3.5 L, [place] % (Auto) 5.0, Eos % (Auto) 0.2, Baso % (Auto) 0.2, Absolute Neuts (auto) 17.2 H, Absolute Lymphs (auto) 0.66 L, Nucleated RBC % 0 08/01/21 06:32: Sodium 136, Potassium 3.3 L, Chloride 101, Carbon Dioxide 27.0, Anion Gap 8, BUN 17, Creatinine 0.78, Estim Creat Clear Calc 118.83, Est GFR (MDRD) Af Amer 133, Est GFR (MDRD) Non-Af 110, BUN/Creatinine Ratio 21.8 H, Glucose 155 H, Calcium 8.3 L Micro: Microbiology 07/29/21 15:15 Nasal Secretion SARS-CoV-2 Antigen (Rapid) - Final Radiography Diagnostic Testing: Radiology Impression Abdomen/Pelvis CT 07/31/21 08:29 IMPRESSION: 1. Recent appendectomy with a small amount of pneumoperitoneum and free fluid with a right lower quadrant surgical drain without postoperative fluid collection. 2. Some bibasilar atelectasis. 3. Mild small bowel obstruction with a transition point in the right upper quadrant. Electronically Signed: Tristen Mnesah MD at 12:30 EDT Tel , Service support , Chest CTA 07/31/21 08:29 IMPRESSION: 1. No CT evidence of pulmonary embolism. 2. Some bibasilar atelectasis. 3. Small amount of pneumoperitoneum consistent with recent abdominal surgery. 4. Enlargement of the left lobe of thyroid gland and correlation with thyroid ultrasound is recommended to exclude thyroid nodule. Electronically Signed: Tristen Mensah MD at 12:38 EDT Tel , Service support , Physical Exam Const oriented x3 GI soft to palpation Inspection: abdominal distention Palpation: tender Assessment & Plan Assessment/Plan (1) Acute appendicitis with rupture: PLAN: Patient had increasing pain yesterday requiring a lot of Dilaudid. I started Toradol. The patient's oxygenation requirements did decrease and he is down to 2 L of oxygen. Patient did have some emesis this morning and I will place an NG tube for postoperative ileus. On CTA yesterday there was no PE and on CT of the abdomen pelvis it appears the patient has an ileus with distended loops of small bowel and stomach but there is gas and stool in the colon. I tried to continue to encourage the patient to ambulate but he says he is in too much pain and is not getting out of bed much. Continue antibiotics. Dagoberto Colvin MD Pager: [facility] [address] [place] [address], [address] [place] [address] Office:
[2021-08-01] MEDS: Potassium Chloride 10mEq/100mL 10 MEQ/100 ML IV.SOLN. 100 MEQ IV BOLUS (09:32)
[2021-08-01] MEDS: Ketorolac 15 MG/ML Vial IV ×3 (09:38→22:31)
[2021-08-01] MEDS: Potassium Chloride 10mEq/100mL 10 MEQ/100 ML IV.SOLN. 50 MEQ IV BOLUS ×3 (14:10→17:10)
--- NOTE | 2021-08-01 19:48 | NURSING ---
permission given by patient to give update to father don. gave update regarding status/progress. Father thankful for care. Per patient, ok to give updates to father if he calls.
[2021-08-02 03:53] VITALS: BP 149/97; PULSE 91; RESP 19; TEMP 37.2; O2SAT 97
[2021-08-02] MEDS: Ketorolac 15 MG/ML Vial IV ×3 (04:58→22:12)
[2021-08-02] MEDS: 0.9% Normal Saline 1,000 ML 125 ML IV ×2 (05:00→18:14)
[2021-08-02 05:45] LABS: Absolute Lymphocyte Count 0.84 X10^3/uL (0.83-4.51); Basophil# 0.04 X10^3/uL; Basophil% 0.3 % (0-1); Eosinophil# 0.31 X10^3/uL; Eosinophils% 2.1 % (0-5); Hematocrit 36.3 % (40-54); Hemoglobin 12.3 g/dL (13.0-16.5); Lymphocyte # 0.84 X10^3/ul (0.83-4.51); Lymphocyte % 5.7 % (19-41); Mean Corp Hgb Conc 33.9 g/dL (32-36); Mean Corpuscular Hgb 27.8 pg (27.0-32.0); Mean Corpuscular Volume 81.9 fL (80-94); Mean Platelet Vol. 8.8 fl (6.2-12.0); Monocyte# 1.42 X10^3/uL; Monocyte% 9.6 % (0-10); NRBC Flagged by Analyzer 0 % (0-5); Neutrophil # 11.99 X10^3/uL (2.7-7.7); Neutrophil % 81.2 % (47-70); Platelet Count 415 K/mm3 (150-450); RBC Distribution Width CV 13.2 % (11.6-14.6); RBC Distribution Width SD 40.2 fl (35.1-43.9); Red Blood Count 4.43 M/mm3 (4.6-6.2); White Blood Count 14.8 K/mm3 (4.4-11.0)
[2021-08-02 06:08] LABS: Anion Gap 9 (5-15); BUN 18 mg/dL (7-18); BUN/Creat Ratio 24.6 RATIO (10-20); Chloride 104 mmol/L (98-107); Creatinine, Serum 0.73 mg/dL (0.70-1.30); EST Glomerular Filtration Rate 118 mL/min (>60); Est Glom Filt Rate - Afr Amer 143 mL/min (>60); Estimated Creatinine Clearance 126.97 ml/min; Glucose 120 mg/dL (74-106); Potassium 3.1 mmol/L (3.5-5.1); Sodium Level 140 mmol/L (136-145)
--- NOTE | 2021-08-02 08:27 | RAD_ITS ---
STUDY: X-RAY - ABDOMEN/PELVIS REASON FOR EXAM: Male, 56 years old. Ileus TECHNIQUE: Single AP view of the abdomen / pelvis. COMPARISON: Comparison is made with prior study 08/01/2021. FINDINGS: And orogastric tube is seen with the tip in the body of the stomach. Since prior study, there has been a progression of the small bowel dilatation. Fecal material is seen throughout the colon. Material There is no demonstrated free abdominal air. The visualized liver, spleen and kidneys are grossly normal in size and morphology. Normal soft tissue structures. Normal visualized osseous structures. RAD/Abdomen Single View IMPRESSION: Progressive small bowel dilatation with gas and fecal material seen in the colon. Follow-up is recommended. Electronically Signed: Corbin Medeiros MD at 13:01 EDT , Service support ,
[2021-08-02 09:00] VITALS: O2SAT 93
--- NOTE | 2021-08-02 09:08 | NURSING ---
Assisted patient to BSC. patient would like to sit there for a while. callight in reach.
--- NOTE | 2021-08-02 09:34 | WOUNDNOTE ---
assisted patient to the chair from the [facility]. no BM at this time. nursing stated pt had one earlier this am. pt steady with walker. patient had a large amount of serosanguineous drainage from the BARRY drain site left lower abd. patient states the drain was pulled this am. removed old dressing. applied a new dry dressing. secured with Medipore tape. gown changed. pt up in chair. call light in reach. Pt denies further needs at this time.
[2021-08-02] MEDS: Potassium Chloride 10mEq/100mL 10 MEQ/100 ML IV.SOLN. 100 MEQ IV BOLUS ×4 (09:46→14:32)
[2021-08-02] MEDS: Enoxaparin 40 MG/0.4 ML Syringe SC (09:52)
[2021-08-02 10:00] VITALS: BP 164/96; PULSE 96; RESP 18; TEMP 37.1; O2SAT 94
[2021-08-02] MEDS: hydroCHLOROthiazide 12.5mg 12.5 MG PO (11:36)
[2021-08-02] MEDS: Lisinopril 5 MG Tablet PO (11:36)
[2021-08-02] MEDS: Aspirin 81 MG TAB.CHEW PO (11:36)
[2021-08-02 18:25] VITALS: BP 154/94; PULSE 88; RESP 16; TEMP 36.6; O2SAT 96
[2021-08-02 22:07] VITALS: BP 167/98; PULSE 80; RESP 18; TEMP 36.6; O2SAT 96
[2021-08-02] MEDS: 0.9% Saline Lock 10 ML Syringe IV (22:12)
[2021-08-03] VITALS (7 sets, daily range): BP systolic 155–165; BP diastolic 83–105; PULSE 74–85; RESP 16–22; TEMP 36.7–37.2; O2SAT 92–96
[2021-08-03] MEDS: 0.9% Normal Saline 1,000 ML 125 ML IV (02:01)
[2021-08-03] MEDS: Ketorolac 15 MG/ML Vial IV ×3 (05:49→21:33)
[2021-08-03] MEDS: 0.9% Saline Lock 10 ML Syringe IV ×2 (05:49→21:32)
--- NOTE | 2021-08-03 05:55 | RAD_ITS ---
STUDY: X-RAY - ABDOMEN/PELVIS REASON FOR EXAM: Male, 56 years old. Ileus TECHNIQUE: Portable, AP radiographs of the abdomen and pelvis COMPARISON: 08/02/2021 RAD/Abdomen Single View (Portable) IMPRESSION: No significant change in diffuse gaseous bowel distention. Enteric tube again projects over the gastric fundus. Electronically Signed: Balaji Burns MD at 5:11 EDT Tel , Service support ,
[2021-08-03 07:19] LABS: Absolute Lymphocyte Count 0.97 X10^3/uL (0.83-4.51); Absolute Neutrophil Count 11.7 X10^3/uL (2.0-7.7); Basophil# 0.05 X10^3/uL; Basophil% 0.3 % (0-1); Eosinophil# 0.35 X10^3/uL; Eosinophils% 2.4 % (0-5); Hematocrit 35.6 % (40-54); Hemoglobin 12.1 g/dL (13.0-16.5); Lymphocyte # 0.97 X10^3/ul (0.83-4.51); Lymphocyte % 6.6 % (19-41); Mean Corpuscular Hgb 27.7 pg (27.0-32.0); Mean Corpuscular Volume 81.5 fL (80-94); Mean Platelet Vol. 8.8 fl (6.2-12.0); Monocyte# 1.35 X10^3/uL; Monocyte% 9.1 % (0-10); NRBC Flagged by Analyzer 0 % (0-5); Neutrophil # 11.69 X10^3/uL (2.7-7.7); Neutrophil % 79.2 % (47-70); Platelet Count 419 K/mm3 (150-450); RBC Distribution Width CV 13.4 % (11.6-14.6); RBC Distribution Width SD 39.9 fl (35.1-43.9); Red Blood Count 4.37 M/mm3 (4.6-6.2); White Blood Count 14.8 K/mm3 (4.4-11.0)
[2021-08-03 07:44] LABS: Anion Gap 9 (5-15); BUN 16 mg/dL (7-18); BUN/Creat Ratio 25.3 RATIO (10-20); Calcium,Total 8.1 mg/dL (8.5-10.1); Chloride 104 mmol/L (98-107); Creatinine, Serum 0.63 mg/dL (0.70-1.30); EST Glomerular Filtration Rate 140 mL/min (>60); Est Glom Filt Rate - Afr Amer 170 mL/min (>60); Estimated Creatinine Clearance 147.13 ml/min; Glucose 114 mg/dL (74-106); Potassium 2.9 mmol/L (3.5-5.1); Sodium Level 139 mmol/L (136-145)
--- NOTE | 2021-08-03 08:31 | PN.SURG_ITS ---
Subjective Subjective Patient is passing flatus and had several bowel movements yesterday evening. His abdomen is nontender. Objective Data Objective Data Vital Signs: Vital Signs Temp Pulse Resp BP Pulse Ox 98.7 F 78 18 155/94 H 92 08/03/21 04:20 08/03/21 04:20 08/03/21 04:20 08/03/21 04:20 08/03/21 07:00 Oxygen Flow Rate (L/min) 7 Oxygen Delivery Method Nasal Cannula Weight: 284 lb 2.813 oz Body Mass Index (BMI) 38.5 Intake & Output: Intake and Output for Last 24 Hours 08/01/21 08/02/21 08/03/21 23:59 23:59 23:59 Intake Total 2590.00 / 2590.00 2674.58 / 2674.58 1202.92 / 1202.92 Output Total 5075 / 5075 1675 / 1675 1375 / 1375 Balance -2485.00 / -2485.00 999.58 / 999.58 -172.08 / -172.08 Lab / Micro Data Result Diagrams: 08/03/21 06:50 08/03/21 06:50 Labs: Laboratory Results - last 24 hr 08/03/21 06:50: WBC 14.8 H, RBC 4.37 L, Hgb 12.1 L, Hct 35.6 L, MCV 81.5, MCH 27.7, MCHC 34.0, RDW Std Deviation 39.9, RDW Coeff of Talat 13.4, Plt Count 419, MPV 8.8, Immature Gran % (Auto) 2.400 H, Neut % (Auto) 79.2 H, Lymph % (Auto) 6.6 L, [place] % (Auto) 9.1, Eos % (Auto) 2.4, Baso % (Auto) 0.3, Absolute Neuts (auto) 11.7 H, Absolute Lymphs (auto) 0.97, Nucleated RBC % 0 08/03/21 06:50: Sodium 139, Potassium 2.9 L, Chloride 104, Carbon Dioxide 26.0, Anion Gap 9, BUN 16, Creatinine 0.63 L, Estim Creat Clear Calc 147.13, Est GFR (MDRD) Af Amer 170, Est GFR (MDRD) Non-Af 140, BUN/Creatinine Ratio 25.3 H, Glucose 114 H, Calcium 8.1 L Micro: Microbiology 07/29/21 15:15 Nasal Secretion SARS-CoV-2 Antigen (Rapid) - Final Radiography Diagnostic Testing: Radiology Impression KUB X-Ray 08/02/21 08:27 IMPRESSION: Progressive small bowel dilatation with gas and fecal material seen in the colon. Follow-up is recommended. Electronically Signed: Corbin Medeiros MD at 13:01 EDT , Service support , KUB X-Ray 08/03/21 05:55 IMPRESSION: No significant change in diffuse gaseous bowel distention. Enteric tube again projects over the gastric fundus. Electronically Signed: Balaji Burns MD at 5:11 EDT Tel , Service support , Physical Exam Const no apparent distress Resp normal respiratory effort GI soft to palpation and non-tender Inspection: Negative for abdominal distention Assessment & Plan Assessment/Plan (1) Acute appendicitis with rupture: PLAN: Patient has ongoing postoperative ileus although it appears to be resolving. The patient has several bowel movements and is passing flatus but x- rays still show a lot of copiously dilated bowel. His NG did put out 700 cc overnight. I will try clamping trial today as he is having no nausea or vomiting and no abdominal pain and having bowel function. Patient is hypokalemic and this will be replaced Continue antibiotics, PPI, Lovenox. Dagboerto Colvin MD Pager: [facility] [address] [place] [address], [address] [place] [address] Office:
[2021-08-03] MEDS: Potassium Chloride 40 MEQ in 0.9% Normal Saline 1,000 ML 120 MEQ IV (09:14)
[2021-08-03] MEDS: Potassium Chloride 10mEq/100mL 10 MEQ/100 ML IV.SOLN. 100 MEQ IV BOLUS ×6 (09:17→18:46)
[2021-08-03] MEDS: hydrALAZINE 20 MG/ML Vial 10 MG IV ×2 (10:52→21:32)
[2021-08-03] MEDS: Enoxaparin 40 MG/0.4 ML Syringe SC (13:58)
[2021-08-03 16:24] LABS: Potassium 3.2 mmol/L (3.5-5.1)
[2021-08-04] VITALS (7 sets, daily range): BP systolic 146–162; BP diastolic 80–101; PULSE 70–82; RESP 18–22; TEMP 36.4–37.3; O2SAT 96–98
[2021-08-04] MEDS: Potassium Chloride 40 MEQ in 0.9% Normal Saline 1,000 ML 120 MEQ IV ×3 (00:07→23:30)
[2021-08-04] MEDS: Ketorolac 15 MG/ML Vial IV ×3 (05:40→20:44)
[2021-08-04] MEDS: 0.9% Saline Lock 10 ML Syringe IV ×3 (05:41→14:45)
--- NOTE | 2021-08-04 05:55 | RAD_ITS ---
STUDY: X-RAY - ABDOMEN/PELVIS REASON FOR EXAM: Male, 56 years old. Ileus TECHNIQUE: AP abdomen radiograph COMPARISON: 2 hours earlier RAD/Abdomen Single View IMPRESSION: No significant change in diffuse gaseous bowel distention. Enteric tube is not demonstrated. Electronically Signed: Balaji Burns MD at 6:32 EDT Tel , Service support ,
[2021-08-04 06:07] LABS: Absolute Lymphocyte Count 1.31 X10^3/uL (0.83-4.51); Absolute Neutrophil Count 11.9 X10^3/uL (2.0-7.7); Basophil# 0.07 X10^3/uL; Basophil% 0.4 % (0-1); Eosinophil# 0.36 X10^3/uL; Eosinophils% 2.3 % (0-5); Hemoglobin 12.6 g/dL (13.0-16.5); Lymphocyte # 1.31 X10^3/ul (0.83-4.51); Lymphocyte % 8.4 % (19-41); Mean Corp Hgb Conc 34.1 g/dL (32-36); Mean Corpuscular Hgb 27.7 pg (27.0-32.0); Mean Corpuscular Volume 81.3 fL (80-94); Mean Platelet Vol. 8.8 fl (6.2-12.0); Monocyte# 1.23 X10^3/uL; Monocyte% 7.9 % (0-10); NRBC Flagged by Analyzer 0 % (0-5); Neutrophil # 11.85 X10^3/uL (2.7-7.7); Neutrophil % 76.1 % (47-70); Platelet Count 442 K/mm3 (150-450); RBC Distribution Width CV 13.4 % (11.6-14.6); Red Blood Count 4.55 M/mm3 (4.6-6.2); White Blood Count 15.6 K/mm3 (4.4-11.0)
[2021-08-04 06:31] LABS: Anion Gap 8 (5-15); BUN 16 mg/dL (7-18); BUN/Creat Ratio 24.1 RATIO (10-20); Calcium,Total 8.1 mg/dL (8.5-10.1); Chloride 104 mmol/L (98-107); Creatinine, Serum 0.66 mg/dL (0.70-1.30); EST Glomerular Filtration Rate 133 mL/min (>60); Est Glom Filt Rate - Afr Amer 161 mL/min (>60); Estimated Creatinine Clearance 140.44 ml/min; Glucose 107 mg/dL (74-106); Potassium 3.3 mmol/L (3.5-5.1); Sodium Level 137 mmol/L (136-145)
--- NOTE | 2021-08-04 07:43 | CT_ITS ---
HISTORY: persistent ileus s/p ileocecectomy for perf appy. TECHNIQUE: Helically acquired images were obtained of the abdomen and pelvis with IV contrast. A radiation dose optimization technique was used for this scan. IV Contrast dosage and agent: 100 mL Isovue-370. Oral contrast: None. # of images incl. paperwork: [phone]. COMPARISON: 07/31/2021. FINDINGS: LOWER CHEST: Mild dependent bibasilar atelectasis with mild bilateral pleural effusions. PERITONEUM: Removal of drainage catheter. Punctate free air, decreased from prior. Mild ascites and mesenteric edema. 3 x 5.7 cm fluid collection in the appendectomy bed. BOWEL: Multiple fluid-filled dilated small bowel loops again seen with transition zone in the right upper quadrant. Decompressed colon with colonic diverticulosis noted. LIVER: No enhancing lesion. GALLBLADDER/BILIARY TREE: Gallbladder present. SPLEEN/PANCREAS: Homogeneous. KIDNEYS/ADRENAL GLANDS: Unremarkable. VESSELS: No abdominal aortic aneurysm. Mild atherosclerosis. PELVIC ORGANS: Trace air in the urinary bladder again noted. ABDOMINAL WALL: Anterior skin jenn with mild edema again seen. Tiny fat-containing umbilical hernia. BONES: Intact. CT/Abdomen/Pelvis WITH Contrast IMPRESSION: Persistent small bowel obstruction with transition point in the upper abdomen. Decreased free air. Appendectomy with small postoperative fluid collection or loculated ascites in the right lower quadrant status post drainage catheter removal. Mild pleural effusions. Individualized dose optimization techniques were used for this CT. at 0840 Reported and signed by: Mary Jane Mccarthy MD Electronically Signed: Mary Jane Mccarthy MD at 8:39 EDT Tel , Service support ,
--- NOTE | 2021-08-04 08:04 | PCM.PN.SRG ---
Subjective Subjective Patient had another bowel movement yesterday and he is not reporting any nausea or vomiting. He does have some abdominal pain. Objective Data Objective Data Vital Signs: Vital Signs Temp Pulse Resp BP Pulse Ox 97.9 F 75 22 H 146/92 H 98 08/04/21 03:22 08/04/21 03:22 08/04/21 03:22 08/04/21 03:22 08/04/21 06:48 Oxygen Flow Rate (L/min) 7 Oxygen Delivery Method Room Air Weight: 284 lb 2.813 oz Body Mass Index (BMI) 38.5 Intake & Output: Intake and Output for Last 24 Hours 08/02/21 08/03/21 08/04/21 23:59 23:59 23:59 Intake Total 2674.58 / 2674.58 4158.34 / 4158.34 190.25 / 190.25 Output Total 1675 / 1675 2390 / 2390 375 / 375 Balance 999.58 / 999.58 1768.34 / 1768.34 -184.75 / -184.75 Lab / Micro Data Result Diagrams: 08/04/21 05:50 08/04/21 05:50 Labs: Laboratory Results - last 24 hr 08/03/21 15:35: Potassium 3.2 L 08/04/21 05:50: WBC 15.6 H, RBC 4.55 L, Hgb 12.6 L, Hct 37.0 L, MCV 81.3, MCH 27.7, MCHC 34.1, RDW Std Deviation 40.0, RDW Coeff of [place]at 13.4, Plt Count 442, MPV 8.8, Immature Gran % (Auto) 4.900 H, Neut % (Auto) 76.1 H, Lymph % (Auto) 8.4 L, [place] % (Auto) 7.9, Eos % (Auto) 2.3, Baso % (Auto) 0.4, Absolute Neuts (auto) 11.9 H, Absolute Lymphs (auto) 1.31, Nucleated RBC % 0 08/04/21 05:50: Sodium 137, Potassium 3.3 L, Chloride 104, Carbon Dioxide 25.0, Anion Gap 8, BUN 16, Creatinine 0.66 L, Estim Creat Clear Calc 140.44, Est GFR (MDRD) Af Amer 161, Est GFR (MDRD) Non-Af 133, BUN/Creatinine Ratio 24.1 H, Glucose 107 H, Calcium 8.1 L Micro: Microbiology 07/29/21 15:15 Nasal Secretion SARS-CoV-2 Antigen (Rapid) - Final Radiography Diagnostic Testing: Radiology Impression KUB X-Ray 08/04/21 05:55 IMPRESSION: No significant change in diffuse gaseous bowel distention. Enteric tube is not demonstrated. Electronically Signed: Balaji Burns MD at 6:32 EDT Tel , Service support , Physical Exam Const no apparent distress Cardio regular rate GI soft to palpation Inspection: abdominal distention Assessment & Plan Assessment/Plan (1) Acute appendicitis with rupture: PLAN: Patient had a KUB at the morning which shows persistently dilated small bowel. He did have another bowel movement. He had no nausea or vomiting after NG was removed. His white count is persistently elevated despite antibiotics. Patient's respiratory status is improved and he is on room air. I plan to order a CT with IV contrast to see if there is a persistent abscess causing his white count and ileus. Dagoberto Colvin MD Pager: [facility] [address] [place] [address], [address] [place] [address] Office:
[2021-08-04 08:12] LABS: Magnesium 2.2 mg/dL (1.6-2.6)
[2021-08-04] MEDS: Potassium Chloride 10mEq/100mL 10 MEQ/100 ML IV.SOLN. 100 MEQ IV BOLUS ×4 (08:21→13:27)
--- NOTE | 2021-08-04 10:41 | PCM.PN.BLA ---
Progress Note I discussed the patient CT findings with him. And shows a possible partial bowel obstruction. Patient did have a bowel movement yesterday evening and reports no nausea or vomiting after 24 hours of ice chips and NG being out. I offered the patient operative exploration tomorrow morning but the patient would like to avoid surgery at all cost. If the patient starts having bowel function I will start him on clears later today or tomorrow. Dr. Harding will be rounding for me over the weekend. If there is no improvement over the weekend I will plan for surgical exploration on Saturday. Dagoberto Colvin MD Pager: [facility] [address] [place] [address], [address] [place] [address] Office:
[2021-08-04] MEDS: Aspirin 81 MG TAB.CHEW PO (10:54)
[2021-08-04] MEDS: Enoxaparin 40 MG/0.4 ML Syringe SC (10:54)
[2021-08-04] MEDS: Lisinopril 5 MG Tablet PO (10:54)
[2021-08-04] MEDS: hydroCHLOROthiazide 12.5mg 12.5 MG PO ×2 (10:54→20:44)
[2021-08-05 03:09] VITALS: BP 163/103; PULSE 72; RESP 18; TEMP 37.1; O2SAT 96
[2021-08-05] MEDS: hydrALAZINE 20 MG/ML Vial 10 MG IV (03:09)
[2021-08-05] MEDS: Ketorolac 15 MG/ML Vial IV (06:01)
[2021-08-05 07:58] VITALS: BP 132/87; PULSE 72; RESP 18; TEMP 36.7; O2SAT 98
[2021-08-05] MEDS: Potassium Chloride 40 MEQ in 0.9% Normal Saline 1,000 ML 120 MEQ IV ×2 (08:00→21:15)
[2021-08-05] MEDS: Enoxaparin 40 MG/0.4 ML Syringe SC (08:01)
[2021-08-05] MEDS: hydroCHLOROthiazide 12.5mg 12.5 MG PO ×2 (08:02→21:15)
[2021-08-05] MEDS: Lisinopril 5 MG Tablet PO (08:02)
[2021-08-05] MEDS: Aspirin 81 MG TAB.CHEW PO (08:02)
[2021-08-05 08:05] VITALS: O2SAT 96
--- NOTE | 2021-08-05 08:24 | PCM.PN.SRG ---
Subjective Subjective Patient states abdominal discomfort is improved. Patient states he has had a bowel movement and is passing flatus. Patient states that he is ambulating Objective Data Objective Data Abdomen is remarkably soft. Dressings are dry. No rebound guarding or peritoneal signs Vital Signs: Vital Signs Temp Pulse Resp BP Pulse Ox 98.1 F 72 18 132/87 H 96 08/05/21 07:58 08/05/21 07:58 08/05/21 07:58 08/05/21 07:58 08/05/21 08:05 Oxygen Flow Rate (L/min) 7 Oxygen Delivery Method Room Air Weight: 271 lb 2.697 oz Body Mass Index (BMI) 38.5 Intake & Output: Intake and Output for Last 24 Hours 08/03/21 08/04/21 08/05/21 23:59 23:59 23:59 Intake Total 4158.34 / 4158.34 2868.58 / 2918.58 1120 / 1120 Output Total 2390 / 2390 675 / 675 700 / 700 Balance 1768.34 / 1768.34 2193.58 / 2243.58 420 / 420 Lab / Micro Data Result Diagrams: 08/04/21 05:50 08/04/21 05:50 Micro: Microbiology 07/29/21 15:15 Nasal Secretion SARS-CoV-2 Antigen (Rapid) - Final Radiography Diagnostic Testing: Radiology Impression Abdomen/Pelvis CT 08/04/21 07:43 IMPRESSION: Persistent small bowel obstruction with transition point in the upper abdomen. Decreased free air. Appendectomy with small postoperative fluid collection or loculated ascites in the right lower quadrant status post drainage catheter removal. Mild pleural effusions. Individualized dose optimization techniques were used for this CT. at 0840 Reported and signed by: Mary Jane Mccarthy MD Electronically Signed: Mary Jane Mccarthy MD at 8:39 EDT Tel , Service support , Assessment & Plan Assessment/Plan (1) Acute appendicitis with rupture: PLAN: I think the patient is improving. His abdomen is much softer. We will continue current plan of care. No urgent surgical needs today.
[2021-08-05 09:48] LABS: Hematocrit 39.4 % (40-54); Mean Corpuscular Hgb 27.1 pg (27.0-32.0); Mean Corpuscular Volume 82.1 fL (80-94); Mean Platelet Vol. 8.9 fl (6.2-12.0); POSITIVE COUNT YES; POSITIVE MORPHOLOGY YES; Platelet Count 462 K/mm3 (150-450); RBC Distribution Width CV 13.3 % (11.6-14.6); White Blood Count 14.5 K/mm3 (4.4-11.0)
[2021-08-05 10:13] LABS: Differential Indicated MANUAL DIFF
[2021-08-05 10:29] LABS: Anion Gap 11 (5-15); BUN 13 mg/dL (7-18); BUN/Creat Ratio 20.7 RATIO (10-20); Chloride 101 mmol/L (98-107); Creatinine, Serum 0.63 mg/dL (0.70-1.30); EST Glomerular Filtration Rate 141 mL/min (>60); Est Glom Filt Rate - Afr Amer 171 mL/min (>60); Estimated Creatinine Clearance 147.13 ml/min; Glucose 97 mg/dL (74-106); Potassium 3.4 mmol/L (3.5-5.1); Sodium Level 136 mmol/L (136-145)
[2021-08-05 10:31] LABS: Eosinophil 4 % (0-5); Lymphocyte 10 % (19-41); Monocyte 5 % (0-10); Myelocyte 2 % (0-0); Neutrophil-Band 1 % (0-5); Neutrophil-Segmented 78 % (47-70); Total Cells Counted 100 (MANUAL DIFF)
[2021-08-05 10:32] LABS: Absolute Neutrophil Count 11.5 X10^3/uL (2.0-7.7); Platelet Estimate ADEQUATE (ADEQ); Red Cell Morphology NORM C+C NORMAL (NORM C&C)
--- NOTE | 2021-08-05 10:32 | NURSING ---
Walked in [facility] first time this morning with EDWIGE Irizarry..
[2021-08-05 10:33] LABS: Absolute Lymphocyte Count 1.45 X10^3/uL (0.83-4.51)
--- NOTE | 2021-08-05 12:41 | NURSING ---
Pt recently got up and ambulated again for the 2nd time today.
[2021-08-05 14:59] VITALS: BP 161/92; PULSE 71; RESP 18; TEMP 37.2; O2SAT 97
--- NOTE | 2021-08-05 17:17 | NURSING ---
This nurse aware of Vital Signs that were taken today at 1459 by Lamar Meza LPN
--- NOTE | 2021-08-05 18:44 | NURSING ---
Pt has walked a total of 5 times today.
[2021-08-05] MEDS: Acetaminophen 325 MG Tablet 650 MG PO (21:21)
[2021-08-05 21:30] VITALS: BP 143/89; PULSE 68; RESP 18; TEMP 37.1; O2SAT 97
[2021-08-06] MEDS: Calcium Carbonate 500 MG Tablet PO ×4 (03:23→22:34)
[2021-08-06] MEDS: Acetaminophen 325 MG Tablet 650 MG PO ×4 (03:24→22:35)
[2021-08-06 03:27] VITALS: BP 121/97; PULSE 71; RESP 18; TEMP 36.1; O2SAT 96
--- NOTE | 2021-08-06 05:15 | NURSING ---
walking in [facility] gait steady
[2021-08-06] MEDS: Potassium Chloride 40 MEQ in 0.9% Normal Saline 1,000 ML 120 MEQ IV ×3 (05:34→23:00)
[2021-08-06 08:20] VITALS: O2SAT 95
[2021-08-06] MEDS: Aspirin 81 MG TAB.CHEW PO (08:38)
[2021-08-06 08:48] VITALS: BP 146/90; PULSE 104; RESP 18; TEMP 36.9; O2SAT 98
[2021-08-06 08:59] VITALS: BP 133/72; PULSE 88; RESP 16; TEMP 36.2; O2SAT 95
--- NOTE | 2021-08-06 09:45 | PCM.PN.SRG ---
Subjective Subjective Patient states he is having bowel movements and passing flatus. He is hungry. Objective Data Objective Data Abdomen is actually softer today than it was yesterday. No rebound guarding or peritoneal signs are identified Vital Signs: Vital Signs Temp Pulse Resp BP Pulse Ox 97.1 F L 88 16 133/72 H 95 08/06/21 08:59 08/06/21 08:59 08/06/21 08:59 08/06/21 08:59 08/06/21 08:59 Oxygen Flow Rate (L/min) 7 Oxygen Delivery Method Room Air Weight: 271 lb 2.697 oz Body Mass Index (BMI) 38.5 Intake & Output: Intake and Output for Last 24 Hours 08/04/21 08/05/21 08/06/21 23:59 23:59 23:59 Intake Total 2868.58 / 2918.58 2466.75 / 2466.75 1050 / 1050 Output Total 675 / 675 1575 / 1575 1300 / 1300 Balance 2193.58 / 2243.58 891.75 / 891.75 -250 / -250 Lab / Micro Data Result Diagrams: 08/05/21 09:35 08/05/21 09:35 Labs: Laboratory Results - last 24 hr 08/05/21 09:35: WBC 14.5 H, RBC 4.80, Hgb 13.0, Hct 39.4 L, MCV 82.1, MCH 27.1, MCHC 33.0, RDW Std Deviation 40.0, RDW Coeff of Talat 13.3, Plt Count 462 H, MPV 8.9, Neut % (Auto) Not Reportable, Absolute Neuts (auto) 11.5 H, Absolute Lymphs (auto) 1.45, Total Counted 100, Neutrophils % (Manual) 78 H, Band Neutrophils % 1, Lymphocytes % (Manual) 10 L, Monocytes % (Manual) 5, Eosinophils % (Manual) 4, Myelocytes % 2 H, Diff Path Review February, Platelet Estimate ADEQUATE, RBC Morphology NORM C+C 08/05/21 09:35: Sodium 136, Potassium 3.4 L, Chloride 101, Carbon Dioxide 24.0, Anion Gap 11, BUN 13, Creatinine 0.63 L, Estim Creat Clear Calc 147.13, Est GFR (MDRD) Af Amer 171, Est GFR (MDRD) Non-Af 141, BUN/Creatinine Ratio 20.7 H, Glucose 97, Calcium 8.0 L Micro: Microbiology 07/29/21 15:15 Nasal Secretion SARS-CoV-2 Antigen (Rapid) - Final Assessment & Plan Assessment/Plan (1) Acute appendicitis with rupture: PLAN: Slow improvement today. Would remain on full liquids only. Hopefully tomorrow we will not need any further surgeries.
[2021-08-06] MEDS: Lisinopril 5 MG Tablet PO (10:10)
[2021-08-06] MEDS: hydroCHLOROthiazide 12.5mg 12.5 MG PO ×2 (10:11→22:34)
[2021-08-06] MEDS: Enoxaparin 40 MG/0.4 ML Syringe SC (10:11)
[2021-08-06 14:06] VITALS: BP 135/88; PULSE 105; RESP 16; TEMP 37; O2SAT 97
[2021-08-06] MEDS: Menthol/Lanolin/Calamine/Znox 113 GM Tube 1 APPLIC TOPICAL (22:34)
[2021-08-06 22:45] VITALS: BP 137/90; PULSE 73; RESP 16; TEMP 36.9; O2SAT 95
[2021-08-07] MEDS: Acetaminophen 325 MG Tablet 650 MG PO ×2 (03:09→08:52)
[2021-08-07 03:17] VITALS: BP 137/105; PULSE 73; RESP 18; TEMP 36.6; O2SAT 97
[2021-08-07] MEDS: Potassium Chloride 40 MEQ in 0.9% Normal Saline 1,000 ML 120 MEQ IV (06:08)
[2021-08-07 07:22] VITALS: O2SAT 97
[2021-08-07 08:05] LABS: Absolute Lymphocyte Count 1.59 X10^3/uL (0.83-4.51); Absolute Neutrophil Count 10.4 X10^3/uL (2.0-7.7); Basophil# 0.11 X10^3/uL; Basophil% 0.8 % (0-1); Eosinophil# 0.43 X10^3/uL; Hematocrit 41.2 % (40-54); Hemoglobin 13.6 g/dL (13.0-16.5); Lymphocyte # 1.59 X10^3/ul (0.83-4.51); Lymphocyte % 11.1 % (19-41); Mean Corpuscular Hgb 26.9 pg (27.0-32.0); Mean Corpuscular Volume 81.4 fL (80-94); Mean Platelet Vol. 8.9 fl (6.2-12.0); Monocyte# 1.13 X10^3/uL; Monocyte% 7.9 % (0-10); NRBC Flagged by Analyzer 0 % (0-5); Neutrophil % 72.9 % (47-70); Platelet Count 538 K/mm3 (150-450); RBC Distribution Width CV 13.6 % (11.6-14.6); RBC Distribution Width SD 39.8 fl (35.1-43.9); Red Blood Count 5.06 M/mm3 (4.6-6.2); White Blood Count 14.3 K/mm3 (4.4-11.0)
--- NOTE | 2021-08-07 08:11 | PCM.PN.SRG ---
Subjective Subjective Patient reports he has several loose bowel movements and he is passing flatus with no nausea or vomiting and he is tolerating liquids. Objective Data Objective Data Vital Signs: Vital Signs Temp Pulse Resp BP Pulse Ox 97.9 F 73 18 137/105 H 97 08/07/21 03:17 08/07/21 03:17 08/07/21 03:17 08/07/21 03:17 08/07/21 07:22 Oxygen Flow Rate (L/min) 7 Oxygen Delivery Method Room Air Weight: 272 lb 4.8 oz Body Mass Index (BMI) 38.5 Intake & Output: Intake and Output for Last 24 Hours 08/05/21 08/06/21 08/07/21 23:59 23:59 23:59 Intake Total 2466.75 / 2466.75 3607 / 3607 1106 / 1106 Output Total 1575 / 1575 1575 / 1575 825 / 825 Balance 891.75 / 891.75 2 / 2031 281 / 281 Lab / Micro Data Result Diagrams: 08/07/21 07:45 08/05/21 09:35 Labs: Laboratory Results - last 24 hr 08/07/21 07:45: WBC 14.3 H, RBC 5.06, Hgb 13.6, Hct 41.2, MCV 81.4, MCH 26.9 L, MCHC 33.0, RDW Std Deviation 39.8, RDW Coeff of Talat 13.6, Plt Count 538 H, MPV 8.9, Immature Gran % (Auto) 4.300 H, Neut % (Auto) 72.9 H, Lymph % (Auto) 11.1 L, [place] % (Auto) 7.9, Eos % (Auto) 3.0, Baso % (Auto) 0.8, Absolute Neuts (auto) 10.4 H, Absolute Lymphs (auto) 1.59, Nucleated RBC % 0 Micro: Microbiology 07/29/21 15:15 Nasal Secretion SARS-CoV-2 Antigen (Rapid) - Final Physical Exam Const oriented x3 and no apparent distress Resp normal respiratory effort GI soft to palpation Inspection: Negative for abdominal distention Palpation: Negative for tender Assessment & Plan Assessment/Plan (1) Acute appendicitis with rupture: PLAN: Patient had several liquid bowel movements and tolerated liquids. I will try to advance to regular diet today and if he tolerates that I may discharge him home. Dagoberto Colvin MD Pager: [facility] [address] [place] [address], [address] [place] [address] Office:
[2021-08-07 08:24] VITALS: BP 127/76; PULSE 77; RESP 16; TEMP 36.9; O2SAT 96
[2021-08-07 08:30] LABS: Anion Gap 8 (5-15); BUN 6 mg/dL (7-18); BUN/Creat Ratio 7.2 RATIO (10-20); Calcium,Total 8.4 mg/dL (8.5-10.1); Chloride 100 mmol/L (98-107); Creatinine, Serum 0.83 mg/dL (0.70-1.30); EST Glomerular Filtration Rate 103 mL/min (>60); Est Glom Filt Rate - Afr Amer 124 mL/min (>60); Estimated Creatinine Clearance 111.67 ml/min; Glucose 111 mg/dL (74-106); Potassium 4.1 mmol/L (3.5-5.1); Sodium Level 136 mmol/L (136-145)
[2021-08-07] MEDS: hydroCHLOROthiazide 12.5mg 12.5 MG PO (08:47)
[2021-08-07] MEDS: Enoxaparin 40 MG/0.4 ML Syringe SC (08:48)
[2021-08-07] MEDS: Aspirin 81 MG TAB.CHEW PO (08:48)
[2021-08-07] MEDS: Lisinopril 5 MG Tablet PO (08:48)
[2021-08-07] MEDS: Pantoprazole Sodium 40 MG Tablet PO (10:11)
[2021-08-07] MEDS: 0.9% Saline Lock 10 ML Syringe IV (10:11)
[2021-08-07 13:35] LABS: Pathologist Review Reviewed
--- NOTE | 2021-08-07 14:24 | PCM.DC.SUM ---
Providers Date of Admission: 07/29/21 Reason For Visit: PERFORATED APPENDICITIS Diagnosis Discharge Diagnosis (1) Acute appendicitis with rupture: Status: Acute Code(s): K35.32 - Acute appendicitis with perforation and localized peritonitis, without abscess Medications at Discharge Home Medications aspirin 81 mg PO DAILY 07/29/21 diclofenac sodium 50 mg PO BID 07/29/21 ezetimibe 10 mg PO QHS 07/29/21 hydrochlorothiazide 12.5 mg PO BID 07/29/21 lisinopril 5 mg PO DAILY 07/29/21 multivitamin 1 tab PO DAILY 07/29/21 potassium chloride 20 meq PO DAILY 07/29/21 potassium chloride 40 meq PO DINNER 07/29/21 Zyrtec 10 mg PO QHS 07/30/21 amlodipine 5 mg PO BID 07/30/21 ciprofloxacin HCl [Cipro] 500 mg PO BID 7 Days #14 tab 08/07/21 metronidazole 500 mg PO TID 7 Days #21 tab 08/07/21 Hospital Course Operations appendectomy (Exploratory laparotomy with ileocecectomy) Summary of Care Provided Minutes Spent on Discharge: 20 Hospital Course: Patient presented to the ED with a 4 day history of severe abdominal pain. Patient presented on 07/29 with abdominal pain, nausea, vomiting. Dr. Colvin performed an exploratory laparotomy with ileectomy on 07/29. Patient tolerated the procedure well. He had a prolonged hospitalization with a post-operative ileus/partial small bowel obstruction. NG tube was administered. Nausea had resolved and NG tube was removed. Upon discharge he had tolerated transitional diet well without nausea, vomiting. His pain was well controlled. He will return for a follow-up in 1 week and staple removal. Patient will also be sent home on 7 day course of Cipro/Flagyl. Weight / BMI Weight Weight: 272 lb 4.8 oz Body Mass Index (BMI) 38.5 ABG / Lab / Microbiology Data Result Diagrams: 08/07/21 07:45 08/07/21 07:45 Laboratory: Laboratory Results - last 24 hr 08/05/21 09:35: Diff Path Review Reviewed 08/07/21 07:45: WBC 14.3 H, RBC 5.06, Hgb 13.6, Hct 41.2, MCV 81.4, MCH 26.9 L, MCHC 33.0, RDW Std Deviation 39.8, RDW Coeff of Talat 13.6, Plt Count 538 H, MPV 8.9, Immature Gran % (Auto) 4.300 H, Neut % (Auto) 72.9 H, Lymph % (Auto) 11.1 L, [place] % (Auto) 7.9, Eos % (Auto) 3.0, Baso % (Auto) 0.8, Absolute Neuts (auto) 10.4 H, Absolute Lymphs (auto) 1.59, Nucleated RBC % 0 08/07/21 07:45: Sodium 136, Potassium 4.1, Chloride 100, Carbon Dioxide 28.0, Anion Gap 8, BUN 6 L, Creatinine 0.83, Estim Creat Clear Calc 111.67, Est GFR (MDRD) Af Amer 124, Est GFR (MDRD) Non-Af 103, BUN/Creatinine Ratio 7.2 L, Glucose 111 H, Calcium 8.4 L Microbiology: Microbiology 07/29/21 15:15 Nasal Secretion SARS-CoV-2 Antigen (Rapid) - Final Meaningful Use Info Meaningful Use Diagnoses (Choose all that apply): None applicable Discharge Plan Admission Admit Date/Time: 07/29/21 19:41 Primary Reason for Your Visit: Acute appendicitis with rupture Attending Provider: Dagoberto Colvin Discharge Orders/Prescriptions Prescriptions: New ciprofloxacin HCl [Cipro] 500 mg tablet 500 mg PO BID 7 Days Qty: 14 RF: 0 metronidazole 500 mg tablet 500 mg PO TID 7 Days Qty: 21 RF: 0 Continued multivitamin Tablet 1 tab PO DAILY RF: 0 hydrochlorothiazide 12.5 mg Capsule 12.5 mg PO BID RF: 0 aspirin 81 mg Tablet 81 mg PO DAILY RF: 0 lisinopril 5 mg Tablet 5 mg PO DAILY RF: 0 diclofenac sodium 50 mg Tablet,Delayed Release (Dr/Ec) 50 mg PO BID RF: 0 ezetimibe 10 mg Tablet 10 mg PO QHS RF: 0 potassium chloride 20 mEq Tablet Extended Release 20 meq PO DAILY RF: 0 potassium chloride 20 mEq Tablet Extended Release 40 meq PO DINNER RF: 0 Zyrtec 10 mg Capsule 10 mg PO QHS RF: 0 amlodipine 5 mg Tablet 5 mg PO BID RF: 0 Other Ambulatory Orders: CBC W/Diff, Automated (Routine) Timeframe: [id number] Facility: [facility] - Location: Laboratory Ordered By: Nichole MALDONADO Referrals / Follow Up: Dagoberto Colvin MD [STAFF PHYSICIAN] - (Please call our office number to schedule a follow-up appointment in 1 week from discharge. Please come 1/2 hour prior to obtain lab work first.) [facility] Doctor,Out of [NON-STAFF] - Disposition Disposition (needs filled in before D/C Order can be placed): Home, Self Care Charges/Coding Visit Charges Inpatient E&M: 42300 Disch Hosp (No charge)
[2021-08-07 14:30] VITALS: BP 126/81; PULSE 87; RESP 18; TEMP 36.6; O2SAT 96
--- NOTE | 2021-08-07 14:35 | PCM.DC ---
Discharge Instructions Diet Discharge Diet: Light diet - advance as tolerated Activity Discharge Activity: May Not Shower (Sponge bathe) Dressing / Incision Call your doctor if your incision/area has: Continuous Slow Oozing, Sudden Increased Bleeding, Increased Pain/ Swelling, Increased Redness, Foul Smelling Discharge and Swelling at the incision site Call your doctor if you observe: Fever of 101 or Higher Suture Line Care: Avoid Pulling/Pushing, Avoid Pinching/Bending and - (No lifting greater than 10 pounds until follow-up with Dr. Colvin ) Change Dressing in: 1 day Additional Dressing/Incision Instructions:: Change incision dressing daily and continue to keep covered. Follow Up Care Please Follow Up With: Dagoberto Colvin MD When: 1 week Test Results: Test results from this visit will be discussed in further detail at your follow-up appointment, if applicable. Discharge Plan Admission Admit Date/Time: 07/29/21 19:41 Primary Reason for Your Visit: Acute appendicitis with rupture Attending Provider: Dagoberto Colvin Discharge Orders/Prescriptions Prescriptions: New ciprofloxacin HCl [Cipro] 500 mg tablet 500 mg PO BID 7 Days Qty: 14 RF: 0 metronidazole 500 mg tablet 500 mg PO TID 7 Days Qty: 21 RF: 0 Continued multivitamin Tablet 1 tab PO DAILY RF: 0 hydrochlorothiazide 12.5 mg Capsule 12.5 mg PO BID RF: 0 aspirin 81 mg Tablet 81 mg PO DAILY RF: 0 lisinopril 5 mg Tablet 5 mg PO DAILY RF: 0 diclofenac sodium 50 mg Tablet,Delayed Release (Dr/Ec) 50 mg PO BID RF: 0 ezetimibe 10 mg Tablet 10 mg PO QHS RF: 0 potassium chloride 20 mEq Tablet Extended Release 20 meq PO DAILY RF: 0 potassium chloride 20 mEq Tablet Extended Release 40 meq PO DINNER RF: 0 Zyrtec 10 mg Capsule 10 mg PO QHS RF: 0 amlodipine 5 mg Tablet 5 mg PO BID RF: 0 Other Ambulatory Orders: CBC W/Diff, Automated (Routine) Timeframe: [id number] Facility: [facility] - Location: Laboratory Ordered By: Nichole MALDONADO Referrals / Follow Up: Dagoberto Colvin MD [STAFF PHYSICIAN] - (Please call our office number to schedule a follow-up appointment in 1 week from discharge. Please come 1/2 hour prior to obtain lab work first.) [facility] Doctor,Out of [NON-STAFF] - Disposition Disposition (needs filled in before D/C Order can be placed): Home, Self Care
== END 2021-08-07 18:07 | disposition home or self-care (01) | DRG 330 ==
LOC: ED 15:54 → SDC 16:53 → ACINP 16:54 → MS2 16:56 → SDC 20:24 → MS2 20:24
PROVIDERS: Admitting Provider Surgery; Emergency Provider Emergency Medicine; Visit Provider Surgery
PROC: 0DTH0ZZ Resection of Cecum, Open Approach (ICD-10-PCS; principal; 2021-07-29 16:55)
DX: K35.32 Acute appendicitis with perforation, localized peritonitis, and gangrene, without abscess (principal); K56.7 Ileus, unspecified; K56.600 Partial intestinal obstruction, unspecified as to cause; E78.5 Hyperlipidemia, unspecified; I10 Essential (primary) hypertension; Z79.899 Other long term (current) drug therapy
CPT/HCPCS: 36415; 71275; 74018; 74176; 74177; 80048; 81001; 83735; 84132; 85025; 87426; 88307; 93005; 99251; 99283; J7030; J7040; J7050; J7120; Q9967; A4216; G0463; J2405

== ENCOUNTER → 2021-08-17 12:52 | Outpatient (CLI) | payer OTHER, SELFPAY ==
[2021-08-17 13:13] LABS: Absolute Lymphocyte Count 2.13 X10^3/uL (0.83-4.51); Absolute Neutrophil Count 5.9 X10^3/uL (2.0-7.7); Basophil# 0.08 X10^3/uL; Basophil% 0.9 % (0-1); Eosinophil# 0.26 X10^3/uL; Eosinophils% 2.8 % (0-5); Hematocrit 41.4 % (40-54); Hemoglobin 13.9 g/dL (13.0-16.5); Lymphocyte # 2.13 X10^3/ul (0.83-4.51); Lymphocyte % 22.8 % (19-41); Mean Corp Hgb Conc 33.6 g/dL (32-36); Mean Corpuscular Hgb 27.5 pg (27.0-32.0); Mean Corpuscular Volume 81.8 fL (80-94); Mean Platelet Vol. 8.9 fl (6.2-12.0); Monocyte# 0.93 X10^3/uL; NRBC Flagged by Analyzer 0 % (0-5); Neutrophil # 5.91 X10^3/uL (2.7-7.7); Neutrophil % 63.2 % (47-70); Platelet Count 499 K/mm3 (150-450); RBC Distribution Width CV 13.7 % (11.6-14.6); RBC Distribution Width SD 40.3 fl (35.1-43.9); Red Blood Count 5.06 M/mm3 (4.6-6.2); White Blood Count 9.3 K/mm3 (4.4-11.0)
== END ==
PROVIDERS: Physician Assistant; Referring Provider Surgery; Visit Provider Surgery
DX: K35.32 Acute appendicitis with perforation, localized peritonitis, and gangrene, without abscess (principal)
CPT/HCPCS: 36415; 85025